=== PATIENT | female | born 1950 | race Caucasian/White ===

== ENCOUNTER 2016-07-10 09:53 | Outpatient (CLI) | payer MEDICARE, OTHER ==
[2015-07-15 09:53] VITALS: O2SAT 94
== END 2016-07-10 09:54 | disposition home or self-care (01) | DRG 566 ==
LOC: RAD 09:53
PROVIDERS: ATTEND Orthopaedic Surgery
DX: Z96.651 Presence of right artificial knee joint (principal)
CPT/HCPCS: 73560